=== PATIENT | male | born 1955 | race African-American/Black ===

== ENCOUNTER 2016-08-05 01:58 | Emergency (ER) | payer OTHER, BC ==
[~2016-08-05] VITALS: Ht 167.6 cm; Wt 95.7 kg
[2016-08-05 02:22] VITALS: BP 141/94
--- NOTE | 2016-08-05 02:35 | PHYS DOC ---
Past Medical History Past Medical History: Arthritis Past Surgical History: No Surgical History Alcohol Use: None Drug Use: None Adult General Chief Complaint Chief Complaint: MECHANICAL FALL HPI HPI Patient is a 60 year old male who presents with for work related injury. 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 He hit the back of his left head causing some initial dazed feeling. He has since developed some slight neck stiffness bilaterally. He also notes some pain to his right forearm/elbow that is mild and constant. He also notes an abrasion to his right junior that is nonbleeding currently. He does not know when his last tetanus vaccine was. He denies loss of consciousness, blurred vision, nausea or vomiting, numbness, tingling, weakness, back pain, chest pain, abdominal pain. He has been ambulatory with steady gait since incident. Review of Systems Review of Systems Constitutional: Denies fever or chills [] Eyes: Denies change in visual acuity, redness, or eye pain [] HENT: Denies nasal congestion or sore throat [] Respiratory: Denies cough or shortness of breath [] Cardiovascular: No additional information not addressed in HPI [] GI: Denies abdominal pain, nausea, vomiting, bloody stools or diarrhea [] : Denies dysuria or hematuria [] Musculoskeletal: Denies back pain [] Integument: Denies rash or skin lesions [] Neurologic: Denies focal weakness or sensory changes [] Endocrine: Denies polyuria or polydipsia [] Current Medications Current Medications Current Medications Medications (Trade) Dose Ordered Sig/[facility] Start Time Stop Time Status Last Admin Dose Admin Diphtheria/ Tetanus/[facility]cell Pertussis (Boostrix) 0.5 ml ONCE ONCE 08/05/16 02:45 08/05/16 02:46 Allergies Allergies Allergies Coded Allergies Type Severity Reaction Last Updated Verified No Known Drug Allergies 08/05/16 No Physical Exam Physical Exam Constitutional: Well developed, well nourished, no acute distress, non-toxic appearance. [] HENT: Normocephalic, bilateral external ears normal, oropharynx moist, no oral exudates, nose normal. Has mild tenderness and rubor to left posterior head with no swelling or skin defect; no palpable skull defect. No flores sign, hemotympanum, or raccoon eyes [] Eyes: PERRLA, EOMI, conjunctiva normal, no discharge. [] Neck: Normal range of motion, no tenderness, supple. [] Cardiovascular:Heart rate regular rhythm, no murmur [] Lungs & Thorax: Bilateral breath sounds clear to auscultation [] Abdomen: Bowel sounds normal, soft, no tenderness. [] Skin: Warm, dry, no erythema, no rash. [] Back: No tenderness, no CVA tenderness. [] Extremities: RUE with no obvious deformity or discoloration; has some mild tenderness to proximal forearm with no visual or palpable abnormality; Full ROM with shoulder/elbow/wrist/hand; Can pronate/supinate; Can make fist/ok sign/ thumb up/finger cross and spread; Can flex/ex wrist; Good radial pulse and brisk cap refill equal bilaterally; sensation intact to light touch m/u/r/ax nerves RLE with no obvious deformity or discoloration; has abrasion to anterior mid lower leg that is nonbleeding; Able to flex/ex/IR/ER hip, knee full rom, ankle df/pf, toes df/pf; SILT grossly Neurologic: Alert and oriented X 3, normal motor function, normal sensory function, no focal deficits noted. [] Psychologic: Affect normal, judgement normal, mood normal. [] Current Patient Data Vital Signs Vital Signs Date Time Temp Pulse Resp B/P (MAP) Pulse Ox O2 Delivery O2 Flow Rate FiO2 08/05/16 02:22 98.7 73 18 99 Room Air 98.7 Course & Med Decision Making Course & Med Decision Making Discussed supportive care and need to follow-up with primary care or Workmen's Comp. Return precautions given. He understands and agrees with plan. Dragon Disclaimer Dragon Disclaimer This electronic medical record was generated, in whole or in part, using a voice recognition dictation system. Departure Departure Impression: Primary Impression: Closed head injury Additional Impressions: Contusion of right forearm Abrasion, right lower leg, initial encounter Disposition: 01 HOME, SELF-CARE Condition: STABLE Referrals: BENEDICTO FENG MD (PCP) Patient Instructions: Head Injury, Adult, [id number] Additional Instructions: Take Tylenol or ibuprofen as needed for pain. Follow-up with your primary care doctor or workman comp doctor. Please call your employer for follow-up directions. Return for any concerns. Problem Qualifiers Primary Impression: Closed head injury Encounter type: initial encounter Qualified Codes: S09.90XA - Unspecified injury of head, initial encounter Additional Impressions: Contusion of right forearm Encounter type: initial encounter Qualified Codes: S50.11XA - Contusion of right forearm, initial encounter Brigitte BROWNING MD Aug 05, 2016 02:35
[2016-08-05] MEDS ORDERED: DIPHTH,PERTUSS(ACELL),TET TOX 0.5 ML DISP.SYRIN. VAX IM ONE (02:45)
== END 2016-08-05 02:40 | disposition home or self-care (01) ==
LOC: ER 01:58
DX: S50.11XA Contusion of right forearm, initial encounter (principal); S80.811A Abrasion, right lower leg, initial encounter; S09.90XA Unspecified injury of head, initial encounter; M19.90 Unspecified osteoarthritis, unspecified site; W01.198A Fall on same level from slipping, tripping and stumbling with subsequent striking against other object, initial encounter; Y93.89 Activity, other specified; Y92.89 Other specified places as the place of occurrence of the external cause; Y99.8 Other external cause status
CPT/HCPCS: 90471; 90715; 99283-25

== ENCOUNTER → 2016-08-05 | Outpatient (CLI) | payer OTHER, BC ==
[2016-08-05 02:22] VITALS: BP 141/94
--- NOTE | 2016-08-05 19:53 | RAD ---
Examination: CT head without contrast History history of fell off a truck, hit back of the head COMPARISON: None available Exposure: One or more of the following individualized dose reduction techniques were utilized for this examination: 1. Automated exposure control 2. Adjustment of the mA and/or kV according to patient size 3. Use of iterative reconstruction technique FINDINGS: There is no evidence of midline shift. There is no acute intracranial bleed or extra-axial fluid collection identified. The patino-white matter differentiation is maintained. The visualized lateral ventricles, third ventricle, fourth and appropriate for age. The basal cisterns aren't effaced. The visualized paranasal sinuses, mastoid air cells are clear. There is small 5 mm soft tissue prominence identified in the upper posterior scalp region could be prominent scalp tissue or small contusion. IMPRESSION: No acute intracranial findings.There is small 5 mm soft tissue prominence identified in the upper posterior scalp region could be prominent scalp tissue or small contusion. Electronically signed by: Wes Patino MD (08/05/2016 7:51 PM)
== END | disposition home or self-care (01) ==
LOC: CT 17:07
PROVIDERS: ATTEND Preventive Medicine Occupational Medicine
DX: S09.90XA Unspecified injury of head, initial encounter (principal); X58.XXXA Exposure to other specified factors, initial encounter; Y93.89 Activity, other specified; Y92.89 Other specified places as the place of occurrence of the external cause; Y99.8 Other external cause status
CPT/HCPCS: 70450